=== PATIENT | male | born 1975 | race Caucasian/White ===

== ENCOUNTER 2019-12-07 19:52 | Inpatient (IN) | payer MEDICAID ==
[~2019-12-07] VITALS: Ht 162.6 cm; Wt 104.3 kg
--- NOTE | 2019-12-07 20:25 | NUR ---
Pt states unable to provide urine at this time.
--- NOTE | 2019-12-07 20:28 | NUR ---
Dr. Wakefield at bedside for MSE.
[2019-12-07] MEDS ORDERED: predniSONE 20 MG TABLET ONE (20:45)
[2019-12-07] MEDS ORDERED: predniSONE 20 MG TABLET PO ONE (20:45)
--- NOTE | 2019-12-07 21:25 | NUR ---
Xray at bedside.
[2019-12-07 21:48] LABS: *BILIRUBIN,URIN NEGATIVE (NEGATIVE); *BLOOD, URINE NEGATIVE (NEGATIVE); *CLARITY,URINE CLEAR (CLEAR); *COLOR,URINE YELLOW (YELLOW); *KETONES,URINE NEGATIVE (NEGATIVE); *UROBILINOGEN,URINE 0.2 E.U./dl (NORMAL); LEUKOCYTE ESTERASE ,URINE NEGATIVE (NEGATIVE); NITRITE, URINE NEGATIVE (NEGATIVE); PH,URINE 5.5 (5.0-8.0); UGLUCOSE NEGATIVE (NEGATIVE)
[2019-12-07 22:02] LABS: *AMPHETAMINE, URINE POSITIVE (NEGATIVE); *BARBITURATE, URINE NEGATIVE (NEGATIVE); *CANNABINOID, URINE NEGATIVE (NEGATIVE); *COCCAINE, URINE NEGATIVE (NEGATIVE); *OPIATE, URINE NEGATIVE (NEGATIVE); *PHENCYCLIDINE SCREEN,URINE NEGATIVE (NEGATIVE)
[2019-12-08] MEDS ORDERED: CLONIDINE HCL 0.1 MG TABLET ONE (00:45)
[2019-12-08] MEDS ORDERED: CLONIDINE HCL 0.1 MG TABLET PO ONE (00:45)
[2019-12-08] MEDS ORDERED: hydrALAZINE HCL 20 MG/1 ML VIAL ONE ×2 (01:42→07:58)
[2019-12-08] MEDS ORDERED: hydrALAZINE HCL 20 MG/1 ML VIAL IV ONE ×2 (01:45→07:45)
[2019-12-08] MEDS ORDERED: LORAZEPAM 2 MG/1 ML VIAL ONE (02:24)
[2019-12-08] MEDS ORDERED: LORAZEPAM 2 MG/1 ML VIAL IV ONE (02:30)
--- NOTE | 2019-12-08 04:51 | NUR ---
Called [facility] to page Dev Morin DNP.
--- NOTE | 2019-12-08 04:54 | NUR ---
Dr. Wakefield on panel call with Dev Morin DNP. Patient accepted for admission to [facility], diagnosis: intractable pain, hypoxemia, uncontrollable hypertension.
--- NOTE | 2019-12-08 04:58 | NUR ---
Xray at bedside.
[2019-12-08 05:11] LABS: BASOPHILS % (AUTO) 0.4 % (0.0-2.0); EOSINOPHILS % (AUTO) 0.1 % (0.0-7.0); HEMATOCRIT 49.2 % (36.7-47.1); HEMOGLOBIN 17.1 g/dL (12.5-16.3); LYMPHOCYTES # (AUTO) 0.8 K/uL (20.0-40.0); LYMPHOCYTES % (AUTO) 10.5 % (20.5-51.5); MEAN CORPUSCULAR HEMOGLOBIN 34.2 uug (23.8-33.4); MEAN CORPUSCULAR HGB CONC 35 g/dL (32.5-36.3); MEAN CORPUSCULAR VOLUME 98.2 fL (73.0-96.2); MONOCYTES # (AUTO) 0.1 K/uL (2.0-10.0); MONOCYTES % (AUTO) 1.5 % (0.0-11.0); NEUTROPHILS # (AUTO) 6.9 K/uL (1.8-8.9); NEUTROPHILS % (AUTO) 87.5 % (38.5-71.5); PLATELET COUNT (AUTO) 245 K/uL (152-348); RED BLOOD CELL COUNT(AUTO) 5.01 MIL/uL (4.06-5.63); WHITE BLOOD COUNT (AUTO) 7.9 K/uL (3.6-10.2)
[2019-12-08] MEDS ORDERED: MAGNESIUM HYDROXIDE 30 ML LIQUID UDC PO PRN (05:15)
[2019-12-08] MEDS ORDERED: ACETAMINOPHEN 325 MG TABLET PO PRN (05:15)
[2019-12-08] MEDS ORDERED: ONDANSETRON 4 MG/2 ML VIAL IV PRN (05:15)
[2019-12-08 05:23] LABS: CREATININE 0.9 mg/dL (0.6-1.3); POTASSIUM 3.9 mmol/L (3.5-5.1)
[2019-12-08 05:34] LABS: BILIRUBIN,TOTAL 1.1 mg/dL (0.2-1.0); TOTAL PROTEIN, SERUM 7.3 g/dL (6.4-8.2)
--- NOTE | 2019-12-08 06:46 | NUR ---
Report given to Mick Mancia.
--- NOTE | 2019-12-08 08:13 | NUR ---
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 PT WENT TO CT SCAN DEPARTMENT AND WAS TRANSFERED TO TELEMETRY ROOM # [id number].
[2019-12-08] MEDS ORDERED: SWABABLE VALVE TRANSFER SET EA MC ONE (08:17)
[2019-12-08] MEDS ORDERED: IV NORMAL SALINE 250 ML IV ONE (08:17)
[2019-12-08] MEDS ORDERED: IOHEXOL 300MG/ML 100 ML INFUS..BTL ONE (08:17)
--- NOTE | 2019-12-08 08:30 | NUR ---
Patient brought in from ER. by rn. Mann. Patient AAOX4. vitals stable no c/of pain. IV line to LAC G18, and left hand G20 patent. as informed pt. awaiting to be taken down for ct with angio, pt,. consented. Over all skin c.d.i. Addendum: 12/08/19 at 0947 by BENITA TO RN As reported by pt. no medications taken at home.
[2019-12-08] MEDS ORDERED: CYCLOBENZAPRINE HCL 10 MG TABLET PO PRN (11:30)
[2019-12-08] MEDS ORDERED: MORPHINE SULFATE 4 MG/1 ML DISP.SYRIN IV PRN (11:30)
[2019-12-08] MEDS ORDERED: HYDROCODONE/APAP 10-325 MG TABLET PO PRN (11:30)
[2019-12-08] MEDS ORDERED: IBUPROFEN 600 MG TABLET PO PRN (11:30)
[2019-12-08] MEDS ORDERED: methylPREDNISolone 1 PACK TAB.DS.PK [4MG TAB] PO ONE (11:45)
[2019-12-08] MEDS ORDERED: DEXTROSE 50% 50 ML DISP.SYRIN IV PRN (11:45)
[2019-12-08] MEDS ORDERED: methylPREDNISolone 4 MG TABLET (DAY#1) PO ONE (12:00)
[2019-12-08] MEDS ORDERED: methylPREDNISolone 4 MG TABLET (DAY#1 PC LUNCH) PO ONE (12:30)
[2019-12-08 13:44] VITALS: BP 129/68
[2019-12-08] MEDS: BLOOD SUGAR DIAGNOSTIC 1 EACH STRIP VI SCH ×2 (16:41→21:00)
[2019-12-08 16:47] VITALS: BP 138/64
[2019-12-08] MEDS ORDERED: methylPREDNISolone 4 MG TABLET (DAY#1, PC DINNER) PO ONE (17:30)
--- NOTE | 2019-12-08 18:10 | NUR ---
Patient left in bed resting AAOX4/ Vitals stable no c/of pain, blood sugar within desire range. IV line to left arm patent. Tolerating diet well with no n/v. Ambulatory with brp no injury sustained.
[2019-12-08 20:48] VITALS: BP 134/80
[2019-12-08] MEDS ORDERED: methylPREDNISolone 4 MG TABLET (DAY#1, HS) PO ONE (21:00)
[2019-12-08] MEDS: INSULIN REGULAR, HUMAN 300 UNIT/3 ML VIAL SQ PRN (22:33)
[2019-12-09 00:21] VITALS: BP 159/62
[2019-12-09 01:26] VITALS: BP 108/60
[2019-12-09 06:16] LABS: BASOPHILS # (AUTO) 0.1 K/uL (0.0-8.0); BASOPHILS % (AUTO) 0.6 % (0.0-2.0); HEMATOCRIT 48.9 % (36.7-47.1); HEMOGLOBIN 16.8 g/dL (12.5-16.3); LYMPHOCYTES # (AUTO) 1.3 K/uL (20.0-40.0); LYMPHOCYTES % (AUTO) 13.9 % (20.5-51.5); MEAN CORPUSCULAR HEMOGLOBIN 33.6 uug (23.8-33.4); MEAN CORPUSCULAR HGB CONC 34 g/dL (32.5-36.3); MEAN CORPUSCULAR VOLUME 97.7 fL (73.0-96.2); MONOCYTES # (AUTO) 0.6 K/uL (2.0-10.0); MONOCYTES % (AUTO) 6.6 % (0.0-11.0); NEUTROPHILS # (AUTO) 7.4 K/uL (1.8-8.9); NEUTROPHILS % (AUTO) 78.9 % (38.5-71.5); PLATELET COUNT (AUTO) 246 K/uL (152-348); WHITE BLOOD COUNT (AUTO) 9.4 K/uL (3.6-10.2)
[2019-12-09 06:24] LABS: CREATININE 0.9 mg/dL (0.6-1.3); MAGNESIUM 2.2 mg/dL (1.8-2.4); PHOSPHOROUS 3.5 mg/dL (2.5-4.9); POTASSIUM 4.1 mmol/L (3.5-5.1)
[2019-12-09 06:39] VITALS: BP 122/70
--- NOTE | 2019-12-09 07:17 | NUR ---
Patient received sitting in bed watching TV. AAOX4/ Vitals stable no c/of pain, no signs or symptoms of dirtiness noted. Blood sugar 129, no coverage needed per sliding scale. Gave patient snacks as per requested. Patient is comfortable, all needs attended to. Patient ambulates to the bathroom independently. Safety measure in place. Call light within patients reach. Patient slept well through the night o sudden reports. IV line on left wrist and AC intact and patent. Will continue to monitor, endorse report to next shift.
[2019-12-09] MEDS ORDERED: methylPREDNISolone 4 MG TABLET (DAY#2, ACB) PO ONE (07:30)
[2019-12-09] MEDS: BLOOD SUGAR DIAGNOSTIC 1 EACH STRIP VI SCH ×4 (07:33→20:45)
--- NOTE | 2019-12-09 07:47 | NUR ---
PATIENT IS IN BED RESTING AWAKE ALERT AND ORIENTED DENIES PAIN OR DISCOMFORTS AT THIS TIME TELE IS SR CALL LIGHTS AND PERSONAL BELONGINGS ARE WITHIN EASY REACH MADE COMFORTABLE WILL CONTINUE TO OBSERVE.
--- NOTE | 2019-12-09 08:24 | NUR ---
BLOOD SUGAR IS 133 WHICH CALLS FOR 2 UNITS OF REGULAR INSULIN COVERAGE BUT PATIENT REFUSED COVERAGE AT THIS TIME.
[2019-12-09] MEDS ORDERED: MAGNESIUM HYDROXIDE 30 ML LIQUID UDC PO PRN (08:30)
--- NOTE | 2019-12-09 11:46 | NUR ---
PATIENT CONTINUES TO REFUSE BLOOD SUGAR COVERAGE STATED THAT HE DOES NOT TAKE INSULIN BLOOD SUGAR AT THIS TIME IS 166 PATIENT EDUCATED ON THE NEED TO TAKE INSULIN ORDERED TO KEEP HER BLOOD SUGAR LEVELS LOW EXPRESSED UNDERSTANDING
[2019-12-09] MEDS ORDERED: [UNRECOGNIZED DRUG - OTHER] (11:50)
--- NOTE | 2019-12-09 11:50 | NUR ---
SPOKE WITH PATIENT RE HOME MEDICATIONS STATED THAT HE TAKE A STEROID MEDICATION BUT UNABLE TO REMEMBER THE NAME OR THE DOSE AND DOES NOT HAVE ANYONE WHO CAN CHECK ON THAT FOR HIM AT THIS TIME.
[2019-12-09 12:00] VITALS: BP 106/46
[2019-12-09] MEDS ORDERED: methylPREDNISolone 4 MG TABLET (DAY#2, PC LUNCH) PO ONE (12:30)
--- NOTE | 2019-12-09 15:59 | NUR ---
RESTING WELL DENIES PAIN OR DISCOMFORTS AT THIS TIME PER THE DNP D/C PLANNING IN AM
[2019-12-09 16:00] VITALS: BP 116/63
[2019-12-09] MEDS ORDERED: methylPREDNISolone 4 MG TABLET (DAY#2, PC DINNER) PO ONE (17:30)
--- NOTE | 2019-12-09 17:30 | NUR ---
PATIENT CONTINUE TO REFUSE REGULAR INSULIN COVERAGE PER SLIDING SCALE ORDERED EDUCATED RE WANTS HIS BLOOD SUGAR LEVELS TO BE CONTROLLED WITH INSULIN COVERAGE HE EXPRESSED UNDERSTANDING BUT CONTINUES TO REFUSE.WILL CONTINUE TO OBSERVE.
--- NOTE | 2019-12-09 18:00 | NUR ---
AWAKE ALERT AND ORIENTED DENIES DISCOMFORTS AWARE THAT HE WILL BE DISCHARGED IN AM STATED THAT HE WILL BE GOING TO THE PRISON.
[2019-12-09 20:00] VITALS: BP 136/70
--- NOTE | 2019-12-09 20:00 | NUR ---
RECEIVED PT AAOX4, DENIES PAIN THIS TIME. ON RM AIR. HEP LOCK INTACT & PATENT ON L HAND & LAC. NOT IN ANY DISTRESS.
[2019-12-09] MEDS: INSULIN REGULAR, HUMAN 300 UNIT/3 ML VIAL SQ PRN (20:45)
[2019-12-09] MEDS ORDERED: methylPREDNISolone 4 MG TABLET (DAY#2, HS) PO ONE (21:00)
--- NOTE | 2019-12-09 21:00 | NUR ---
PT REFUSED THE SLIDING SCALE INSULIN FOR BS.
--- NOTE | 2019-12-09 23:00 | NUR ---
RESTING QUITELY. NOT IN ANY DISTRESS.
[2019-12-10 04:00] VITALS: BP 102/79
--- NOTE | 2019-12-10 06:00 | NUR ---
HEP LOCK INTACT & PATENT. RESTING QUITELY.
[2019-12-10 06:44] LABS: *BILIRUBIN,URIN NEGATIVE (NEGATIVE); *BLOOD, URINE NEGATIVE (NEGATIVE); *CLARITY,URINE CLEAR (CLEAR); *COLOR,URINE YELLOW (YELLOW); *KETONES,URINE NEGATIVE (NEGATIVE); LEUKOCYTE ESTERASE ,URINE NEGATIVE (NEGATIVE); NITRITE, URINE NEGATIVE (NEGATIVE); UGLUCOSE NEGATIVE (NEGATIVE)
[2019-12-10] MEDS: BLOOD SUGAR DIAGNOSTIC 1 EACH STRIP VI SCH ×2 (06:47→12:04)
[2019-12-10] MEDS: INSULIN REGULAR, HUMAN 300 UNIT/3 ML VIAL SQ PRN (06:47)
[2019-12-10 07:14] LABS: BACTERIA,URINE NONE SEEN /HPF (NONE SEEN); RBC,URINE NONE SEEN /HPF (0-3); SQUAMOUS EPITHELIAL CELL,UR NONE SEEN /HPF (NONE SEEN); WBC,URINE NONE SEEN /HPF (0-3)
[2019-12-10 07:15] LABS: MUCUS,URINE NONE SEEN /LPF (0-FEW)
[2019-12-10] MEDS ORDERED: methylPREDNISolone 4 MG TABLET (DAY#3, ACB) PO ONE (07:30)
--- NOTE | 2019-12-10 08:50 | NUR ---
patient refused insulin, risks and benefits explained, no acute distress noted
[2019-12-10 11:20] VITALS: BP 134/76
[2019-12-10] MEDS ORDERED: METH4TAB3 PO (11:37)
[2019-12-10] MEDS ORDERED: IBUP-1955 PO (11:37)
[2019-12-10] MEDS ORDERED: methylPREDNISolone 4 MG TABLET (DAY#3, PC LUNCH) PO ONE (12:30)
--- NOTE | 2019-12-10 15:00 | NUR ---
PATIENT IS ALERT, ORIENTED X4, VERBALLY RESPONSIVE, NO SOB, RESP EVEN NONLABORED,SKIN WARM AND DRY TO TOUCH, NO DISTRESS NOTED, PAIN IS WELL MANAGED WITH PAIN MEDICATION, DISCHARGE INSTRUCTIONS ARE GIVEN TO PATIENT, PATIENT VERBALIZED UNDERSTANDING OF IT, PRESCRIPTION GIVEN TO PATIENT, INFORMATION PACKET GIVEN TO PATIENT WHICH INCLUDES HOUSING INFORMATION, OFFERED CLOTHES, PATIENT STATED HE HAS CLOTHES, SNACK GIVEN TO PATIENT TO CARRY WITH HIM, IV REMOVED, ID BANDAGE REMOVED, BELONGINGS ACCOUNTED AND SIGNED. BUS PASS GIVEN TO PATIENT. PATIENT SKIN IS INTACT,STABLE CONDITION, AMBULATORY, PATIENT CONCERNS ADDRESSED, QUESTIONS ANSWERED. ASSISTED PATIENT TO GO DOWN SAFELY.
[2019-12-10] MEDS ORDERED: methylPREDNISolone 4 MG TABLET (DAY#3, PC DINNER) PO ONE (17:30)
[2019-12-10] MEDS ORDERED: methylPREDNISolone 4 MG TABLET (DAY#3, HS) PO ONE (21:00)
[2019-12-11] MEDS ORDERED: methylPREDNISolone 4 MG TABLET (DAY#4, ACB) PO ONE (07:30)
[2019-12-11] MEDS ORDERED: methylPREDNISolone 4 MG TABLET (DAY#4, PC LUNCH) PO ONE (12:30)
[2019-12-11] MEDS ORDERED: methylPREDNISolone 4 MG TABLET (DAY#4, HS) PO ONE (21:00)
[2019-12-12] MEDS ORDERED: methylPREDNISolone 4 MG TABLET (DAY#5, ACB) PO ONE (07:30)
[2019-12-12] MEDS ORDERED: methylPREDNISolone 4 MG TABLET (DAY#5, HS) PO ONE (21:00)
[2019-12-13] MEDS ORDERED: methylPREDNISolone 4 MG TABLET (DAY#6, ACB) PO ONE (07:30)
== END 2019-12-10 15:25 | disposition home or self-care (01) | DRG 347 ==
LOC: ER 19:57 → TELE3 12-08 07:58 → MEDSURG3 12-09 11:00
PROVIDERS: ADMIT Nurse Practitioner Acute Care; ATTEND Registered Nurse
DX: M54.42 Lumbago with sciatica, left side (principal); E66.01 Morbid (severe) obesity due to excess calories; Z68.39 Body mass index [BMI] 39.0-39.9, adult; Z59.0 Homelessness; E78.5 Hyperlipidemia, unspecified; G47.30 Sleep apnea, unspecified; I10 Essential (primary) hypertension; R73.9 Hyperglycemia, unspecified; G89.29 Other chronic pain; F15.10 Other stimulant abuse, uncomplicated
CPT/HCPCS: 36415; 70030-TC; 71045; 73502; 80307; 83735; 84100; 85025; 93005; A4217; A4663; G0378; J0360; J1815; J2060; J7050; J7509; J7512; Q9967

== ENCOUNTER 2019-12-28 01:27 | Emergency (ER) | payer MEDICAID ==
[~2019-12-28] VITALS: Ht 162.6 cm; Wt 104.3 kg
[~2019-12-28 01:27] MED LIST: IBUP-1955 PO; METH4TAB3 PO
--- NOTE | 2019-12-28 02:25 | NUR ---
Dr. Wakefield at bedside for MSE.
[2019-12-28] MEDS ORDERED: KETOROLAC TROMETHAMINE 60 MG INJ IM ONE ×2 (02:30→03:08)
--- NOTE | 2019-12-28 02:50 | NUR ---
Xray at bedside.
--- NOTE | 2019-12-28 03:59 | NUR ---
Patient given written and verbal discharge instructions. Patient verbalizes understanding of instructions. Patient is ambulatory with steady gait. Refuses offer of [facility] placement. Patient given list of available shelters in surrounding area. VSS, no acute signs of distress, all belongings taken. Patient provided with sandwich and juice per patient request, refuses all other services provided at this time.
[2019-12-28 04:03] VITALS: BP 150/110
== END 2019-12-28 04:04 | disposition home or self-care (01) ==
LOC: ER 01:30
DX: M79.671 Pain in right foot (principal); M54.32 Sciatica, left side; M79.674 Pain in right toe(s); M21.611 Bunion of right foot; E78.5 Hyperlipidemia, unspecified; I10 Essential (primary) hypertension; Z91.14 Patient's other noncompliance with medication regimen; Z59.0 Homelessness
CPT/HCPCS: 73630; 96372; 99283; J1885; A4663

== ENCOUNTER 2021-02-19 18:52 | Emergency (ER) | payer MEDICAID ==
--- NOTE | 2021-02-19 22:31 | NUR ---
Pt not in waiting room
== END 2021-02-19 22:31 | disposition left against medical advice (07) ==
LOC: ER 18:52
DX: Z53.21 Procedure and treatment not carried out due to patient leaving prior to being seen by health care provider (principal)